=== PATIENT | female | born 1990 | race Caucasian/White ===

== ENCOUNTER → 2016-07-02 | Outpatient (CLI) | payer OTHER ==
[~2016-07-02] MED LIST: B-COMPLEX W-VIT1 TAB PO; FLEXERIL10 MG PO; TRAMADOL HCL50 M1 PO
[2016-07-02 10:42] LABS: INFLUENZA A NEG (NEG)
[2016-07-02 10:43] LABS: INFLUENZA B NEG (NEG)
== END | disposition home or self-care (01) ==
LOC: CLAB 09:55
PROVIDERS: Physician Assistant
DX: Z13.9 Encounter for screening, unspecified (principal)
CPT/HCPCS: 87804